=== PATIENT | male | born 1985 | race Caucasian/White ===

== ENCOUNTER 2016-09-07 05:07 | Emergency (ER) | payer MEDICAID ==
[~2016-09-07] VITALS: Ht 188 cm; Wt 90.1 kg
[2016-09-07] MEDS ORDERED: OLANZAPINE 10 MG TABLET PO ONE (06:07)
[2016-09-07 06:24] LABS: DAU SCREEN DISCLAIMER
[2016-09-07 06:30] LABS: BLOOD UREA NITROGEN 18 mg/dL (7-18)
[2016-09-07 06:33] LABS: ACETAMINOPHEN < 2 mcg/mL (10-30)
[2016-09-07 13:51] VITALS: BP 111/69
== END 2016-09-07 14:07 | disposition home or self-care (01) ==
LOC: ED 06:09
DX: F22 Delusional disorders (principal); F32.1 Major depressive disorder, single episode, moderate; I10 Essential (primary) hypertension; F20.9 Schizophrenia, unspecified
CPT/HCPCS: 36415; 80048; 80307; 80329; 82040; 85025; 99284; G0480